=== PATIENT | male | born 1985 | race Caucasian/White ===

== ENCOUNTER 2018-03-27 11:58 | Emergency (ER) | payer OTHER ==
[~2018-03-27] VITALS: Ht 172.7 cm; Wt 58.5 kg
--- NOTE | 2018-03-27 12:33 | NUR ---
PT BIB [facility], C/O ABD PAIN & DIARRHEA X 1 WK, PT IS AAOX4, NOT IN RESPIRATORY DISTRESS, V/S STABLE, KEPT RESTED AND COMFORTABLE, WILL CONTINUE TO MONITOR.
--- NOTE | 2018-03-27 12:38 | NUR ---
SALINE LOCK INSERTED, LABS DRAWNED AND SENT TO LAB.
--- NOTE | 2018-03-27 12:40 | NUR ---
SEEN AND EXAMINED BY. MS JLUIS HERRON.
[2018-03-27] MEDS ORDERED: DICYCLOMINE HCL INJ 20 MG/2 ML AMPUL IM ONE (12:58)
[2018-03-27] MEDS ORDERED: DICYCLOMINE HCL 10 MG CAPSULE PO ONE ×2 (13:00)
[2018-03-27] MEDS ORDERED: IV NS 0.9% 1,000 ML BAG IV ONE (13:00)
[2018-03-27 13:17] LABS: BASOPHILS # (AUTO) 0.1 /CMM (0.0-0.2); BASOPHILS % (AUTO) 0.7 % (0.0-2.0); EOSINOPHILS % (AUTO) 1.7 % (0.0-6.0); HEMATOCRIT 50 % (39-51); HEMOGLOBIN 16.7 g/dL (13.5-17.5); LYMPHOCYTES # (AUTO) 1.6 /CMM (0.8-4.8); LYMPHOCYTES % (AUTO) 15.9 % (20.0-44.0); MEAN CORPUSCULAR HGB CONC 34 g/dl (31.0-36.0); MEAN CORPUSCULAR VOLUME 91 fL (80-96); MONOCYTES # (AUTO) 1.4 /CMM (0.1-1.30); NEUTROPHILS # (AUTO) 6.9 /CMM (1.8-8.9); NEUTROPHILS % (AUTO) 67.7 % (43.0-81.0); PLATELET COUNT (AUTO) 268 /CMM (150-450); RED BLOOD CELL COUNT(AUTO) 5.47 MIL/uL (4.5-6.0); WHITE BLOOD COUNT (AUTO) 10.3 K/uL (4.3-11.0)
[2018-03-27 13:26] LABS: CREATININE 1.1 mg/dL (0.6-1.3); POTASSIUM 3.8 mmol/L (3.5-5.1)
[2018-03-27 13:32] LABS: ALBUMIN 3.3 g/dL (3.4-5.0); BILIRUBIN,DIRECT 0.1 mg/dL (0.0-0.2); BILIRUBIN,TOTAL 0.4 mg/dL (0.2-1.0)
[2018-03-27] MEDS ORDERED: IOHEXOL-300 100 ML VIAL IV ONE (13:54)
[2018-03-27] MEDS ORDERED: IV NS 0.9% 250 ML IV ONE (13:54)
[2018-03-27 14:37] LABS: THYROID STIMULATING HORMONE 1.728 uIU/mL (0.358-3.74)
[2018-03-27 15:42] VITALS: BP 109/74
== END 2018-03-27 16:28 | disposition home or self-care (01) ==
LOC: ER 12:00
DX: K52.9 Noninfective gastroenteritis and colitis, unspecified (principal)
CPT/HCPCS: 36415; 74177; 80048; 80076; 84439; 84443; 84481; 85025; 96360; 99284; A4606; J7030; J7050; Q9967; J0500